=== PATIENT | male | born 1985 | race Caucasian/White ===

== ENCOUNTER 2019-11-06 15:43 | Emergency (ER) | payer BC, SELFPAY ==
--- NOTE | 2019-11-06 15:44 | XRR_ITS ---
PROCEDURE INFORMATION: Exam: XR Right Shoulder Exam date and time: 11/06/2019 4:02 PM Age: 33 years old Clinical indication: Pain; Shoulder; Right; Patient HX: No known trauma TECHNIQUE: Imaging protocol: XR Right shoulder. Views: 2 or more views. COMPARISON: No relevant prior studies available. FINDINGS: Bones/joints: Negative for acute bony abnormality Soft tissues: Metallic surgical clips seen in the soft tissues of the anterior neck XR/XR shoulder RT min 2V* [id number] IMPRESSION: 1. No acute bone abnormality. 2. Metallic surgical clips anterior neck
[2019-11-06 16:02] VITALS: BP 157/89; PULSE 70; RESP 14; TEMP 36.9; O2SAT 97; BMI 42.2
--- NOTE | 2019-11-06 16:11 | ED_ITS ---
HPI - Extremity Problem General: Chief complaint: Extremity Problem,Nontraumatic Stated complaint: RIGHT SHOULDER AND NECK PAIN Time Seen by Provider: 11/06/19 16:10 Source: patient Mode of arrival: ambulatory Limitations: no limitations Review of Systems General: Reports: 10 or more systems reviewed and unremarkable except in HPI and below Musc: Reports: neck pain, extremity pain (right ar,) and joint pain (right shoulder) Physical Exam Const: COMMON NORMALS: no acute distress, patient oriented x3, no limitations and alert GENERAL APPEARANCE: cooperative and comfortable ORIENTATION/CONSCIOUSNESS: Yes awake, Yes oriented to person, Yes oriented to place and Yes oriented to time HENMT: COMMON NORMALS: normocephalic, atraumatic, external ears normal, EAC's normal, TM's normal bilaterally and Normal external nose present HEAD & SCALP: normal to inspection, normocephalic and atraumatic FACE & SINUS: normal facial exam, sinuses nontender and face symmetric NOSE: Normal external nose present, Normal nares present and No nasal discharge present EXTERNAL EAR: Yes external ears normal EXTERNAL AUDITORY CANAL: EAC's normal TYMPANIC MEMBRANE: TM's normal bilaterally MOUTH: Normal oral and palatal mucosa present, lip normal and tongue normal THROAT: posterior oropharynx normal, tonsils normal and uvula midline Eye: COMMON NORMALS: Equal, round and reactive pupils present, EOMs intact bilaterally and conjunctivae normal GENERAL EYE: appearance normal, both eyes and all related structures and normal light reflex EYELID: eyelids normal CONJUNCTIVA: Yes conjunctivae normal PUPIL: Yes Equal, round and reactive pupils present EOM: Yes EOM abnormal DIRECT OPHTHALMOSCOPY: Yes normal light reflex Neck/C-Spine: COMMON NORMALS: full ROM, no lymphadenopathy, supple, no meningeal signs, no JVD and Thyroid normal GENERAL: Yes normal visual inspection THYROID: Thyroid normal CERVICAL SPINE: Yes cervical ROM normal and Yes normal cervical lordosis Lymph: LYMPHATIC: no lymphadenopathy noted Chest: COMMONS NORMALS: normal inspection of the chest and normal palpation of entire chest wall Resp: COMMON NORMALS: normal respiratory effort, No retractions and clear to auscultation bilaterally AUSCULTATION: clear to auscultation bilaterally Cardio: COMMON NORMALS: no JVD, regular rate, regular rhythm, S1 normal heart sound present, S2 normal heart sound present, No gallops present (Cardio), No clicks present (Cardio), No murmurs present (Cardio), No rub (Cardio) and Peripheral pulses 2+ throughout RATE: regular rate RHYTHM: regular rhythm HEART SOUNDS: S1 normal heart sound present and S2 normal heart sound present PERIPHERAL PULSES: Peripheral pulses 2+ throughout GI: COMMON NORMALS: Normal to inspection, nondistended, normoactive bowel sounds present, Soft to palpation, non-tender and no masses PALPATION: Yes Soft to palpation : COMMON NORMALS: Yes no CVA tenderness BLADDER/KIDNEY EXAM: Yes no CVA tenderness Back/Pelvis: COMMON NORMALS: no CVA tenderness, thoracic and lumbar spine normal to inspection, no thoracic nor lumbar tenderness and thoraco-lumbar ROM normal Extremity: COMMON NORMALS: normal to inspection, full ROM, capillary refill normal, no joint enlargement, no clubbing, cyanosis or edema, no calf tenderness and no pedal edema GENERAL: Yes normal exam except as noted RIGHT UPPER EXTREMITY: Yes shoulder joint Right shoulder: Yes palpation and Yes Right shoulder joint ROM exam (mild pain when turns head to the left; ache in right should blade) Neuro: COMMON NORMALS: patient oriented x3, moves all extremities, no focal motor deficits, no sensory deficits noted and gait normal SENSORIUM/ORIENTATION: Yes alert, Yes oriented to person, Yes oriented to place and Yes oriented to time MENINGEAL SIGNS: Yes no meningeal signs Psych: COMMON NORMALS: mental status grossly normal, Normal thought process present, cooperative, normal affect, speech normal and activity/motor behavior normal SPEECH: Yes normal speech THOUGHT PROCESS: Normal thought process present Skin: COMMON NORMALS: no rashes or lesions noted, no wounds and turgor normal GENERAL SKIN EXAM: no rashes or lesions noted and turgor normal Course ED course: Pt presents with complaints of right shoulder pain x 1 week. He states he can feel it in his right side of his neck and trapezius muscle is sore upon palpation. We are going to do steroids, muscle relaxers, and NSAIDs. Advise follow up or return if worsening in symptoms Vital Signs: Vital signs: Vital Signs Temperature 98.5 F 11/06/19 16:02 Pulse Rate 70 11/06/19 16:02 Respiratory Rate 14 11/06/19 16:02 Blood Pressure 157/89 11/06/19 16:02 Pulse Oximetry 97 11/06/19 16:02 Discharge Plan Discharge Patient Disposition: Home Clinical Impression: Cervical radiculopathy Condition: Stable Prescriptions: New methylprednisolone [Medrol (Luciano)] 4 mg tablets,dose pack See Rx Instructions .ROUTE .COMPLEX Qty: 21 RF: 0 tizanidine 4 mg capsule 4 mg PO BID PRN (Reason: muscle spasticity) Qty: 20 RF: 0 ibuprofen 800 mg tablet 800 mg PO Q8H Qty: 20 RF: 0 Discharge Orders: Discharge Order (Routine); Ordered 11/06/19 Ordered By: Emili Delgado Referrals: Michael Romeo MD [Primary Care Provider] - Discharge Diet: Usual diet Discharge Activity: Increase activity as tolerated Activity Restrictions/Additional Instructions: Follow up with PCP in one week or return for worsening in symptoms as needed. Coding Level of Care Code ED Safety Counselor for Alex Angela
[2019-11-06] MEDS: dexamethasone 10 mg/mL INJ IM (16:55)
[2019-11-06] MEDS: orphenadrine 30 mg/mL Inj 2 mL 60 MG IM (16:55)
[2019-11-06] MEDS: ketorolac 60 mg/2 mL INJ IM (16:55)
[2019-11-06 16:59] VITALS: BP 147/94; PULSE 74; RESP 14; O2SAT 96
== END 2019-11-06 16:59 | disposition home or self-care (01) ==
PROVIDERS: Emergency Provider Nurse Practitioner Family; Family Provider Family Medicine; PCP Family Medicine
DX: M54.12 Radiculopathy, cervical region (principal)
CPT/HCPCS: 12345; 73030; 96372; 99281; 99283; J1100; J1885; J2360

== ENCOUNTER 2019-12-06 12:30 | Outpatient (CLI) | payer BC, SELFPAY | END 2019-12-06 12:31 | disposition home or self-care (01) | LOC: SLEEP 12-07 09:51 | PROVIDERS: Family Provider Family Medicine; PCP Family Medicine; Visit Provider Family Medicine | DX: G47.10 Hypersomnia, unspecified (principal) | CPT/HCPCS: G0399 ==

== ENCOUNTER 2020-03-20 18:48 | Emergency (ER) | payer BC, SELFPAY ==
[2020-03-20 19:08] VITALS: BP 153/92; PULSE 98; RESP 16; TEMP 37; O2SAT 97; BMI 42.5
[2020-03-20 20:11] VITALS: BP 160/103; PULSE 80; RESP 18; O2SAT 99
--- NOTE | 2020-03-20 20:13 | ED_ITS ---
HPI - Fall General: Chief Complaint: Fall Stated Complaint: SLIPPED ON STAIRS, INJURIES (BACK & R WRIST) Time Seen by Provider: 03/20/20 20:10 Source: patient Mode of arrival: ambulatory Limitations: no limitations History of Present Illness: HPI Narrative: Patient is a 34-year-old male who presents to ED today for an evaluation of a slip and fall down a flight of stairs. Patient tells me he slipped on ice and fell onto his right side. He is complaining of right posterior rib pain and right wrist/hand pain. He denies striking his head, LOC, neck, or back pain. Patient is ambulatory without difficulty. MD complaint: fall Onset (ago): hour(s) Fall from: standing Fall witnessed: no Place fall occurred: home Loss of consciousness: None Prolonged down time: no Symptoms prior to fall: none Context: tripped/slipped Location of injury: chest (R posterior ribs) Location of injury - extremities: Left: hand Associated symptoms-after fall: Reports no associated symptoms and chest pain (R rib pain); Denies abdominal pain, headache(s), lightheadedness or neck pain Review of Systems Const: Denies: fever(s) or chills Eyes: Denies: change in vision Card: Reports: chest pain (R rib pain); Denies: palpitations, edema, lightheadedness, syncope, pre-syncope or orthopnea Resp: Denies: dyspnea, productive cough, non-productive cough, hemoptysis or chest congestion GI: Denies: abdominal pain Musc: Reports: extremity pain (R wrist/hand); Denies: neck pain Neuro: Denies: headache(s), numbness in extremities, weakness in extremities or sensory changes Physical Exam Const: COMMON NORMALS: no acute distress, patient oriented x3, no limitations and alert GENERAL APPEARANCE: cooperative ORIENTATION/CONSCIOUSNESS: Yes awake, Yes oriented to person, Yes oriented to place and Yes oriented to time HENMT: COMMON NORMALS: normocephalic and atraumatic HEAD & SCALP: normocephalic and atraumatic Neck/C-Spine: COMMON NORMALS: full ROM CERVICAL SPINE: Yes cervical ROM normal and No Cervical spine tenderness Chest: COMMONS NORMALS: normal inspection of the chest OTHER: TTP R posterior mid to lower ribs; no crepitus noted Resp: COMMON NORMALS: normal respiratory effort and clear to auscultation bilaterally AUSCULTATION: clear to auscultation bilaterally Cardio: COMMON NORMALS: regular rate and regular rhythm RATE: regular rate RHYTHM: regular rhythm Extremity: GENERAL: Yes normal exam except as noted OTHER: TTP to R proxim al ulnar hand on palmar surface; NV intact Neuro: MARYCRUZ COMA SCALE: document GCS findings Marycruz coma scale eye opening: Spontaneous Marycruz coma scale verbal response: Orientated Marycruz coma scale motor response: Obey commands [place] coma scale total score: 15 COMMON NORMALS: patient oriented x3, moves all extremities, no focal motor deficits, no sensory deficits noted and gait normal SENSORIUM/ORIENTATION: Yes alert, Yes oriented to person, Yes oriented to place and Yes oriented to time Skin: COMMON NORMALS: no rashes or lesions noted GENERAL SKIN EXAM: no rashes or lesions noted Course Vital Signs: Vital signs: Vital Signs Temperature 98.6 F 03/20/20 19:08 Pulse Rate 80 03/20/20 20:11 Respiratory Rate 18 03/20/20 20:11 Blood Pressure 160/103 03/20/20 20:11 Pulse Oximetry 99 03/20/20 20:11 MDM - Fall MDM Narrative: Medical decision making narrative: questionable pisiform fx on XR; he is point tenderness here on exam therefore will splint and have him follow up with orthopedics Imaging Data^: XR R ribs: My impression: NAD XR R wrist: My impression: on AP view there is a questionable fracture of pisiform Discharge Plan Discharge Patient Disposition: Home Clinical Impression: Fall from slipping on ice Qualifiers: Encounter type: initial encounter Qualified Code(s): W00.9XXA - Unspecified fall due to ice and snow, initial encounter Contusion of rib on right side Qualifiers: Encounter type: initial encounter Qualified Code(s): S20.211A - Contusion of right front wall of thorax, initial encounter Fracture of pisiform of right wrist Qualifiers: Encounter type: initial encounter Fracture type: closed Fracture alignment: nondisplaced Qualified Code(s): S62.164A - Nondisplaced fracture of pisiform, right wrist, initial encounter for closed fracture Condition: Stable Prescriptions: New hydrocodone-acetaminophen 5-325 mg tablet 1 tab PO Q6H PRN (Reason: pain) Qty: 14 RF: 0 No Action Medrol (Luciano) 4 mg tablets,dose pack See Rx Instructions .ROUTE .COMPLEX Qty: 21 RF: 0 tizanidine 4 mg capsule 4 mg PO BID PRN (Reason: muscle spasticity) Qty: 20 RF: 0 ibuprofen 800 mg tablet 800 mg PO Q8H Qty: 20 RF: 0 Discharge Orders: Discharge ED (Routine); Ordered 03/20/20 Ordered By: Lucita Bee Referrals: Michael Romeo MD [Primary Care Provider] - Patient Instructions: Opioid Safety Activity Restrictions/Additional Instructions: As discussed case management should contact you shortly to set you up with your orthopedic appointment. If you have not heard from them in 2 days please contact us for further instructions. Coding Level of Care Code ED Internet Marketing Specialist for Alex Fwd Exam Comprehensive
--- NOTE | 2020-03-20 20:23 | XR_ITS ---
WS: [id number] Right wrist, 03/20/2020 Clinical Data: fall Comparison: None. Findings: No fractures or dislocations are seen. The carpal bones are intact. There is no soft tissue swelling. The distal radius and ulna are not remarkable. XR/XR wrist RT min 3V* [id number] Impression: Negative right wrist.
--- NOTE | 2020-03-20 20:23 | XR_ITS ---
WS: [id number] Chest with right rib detail, 03/20/2020 Clinical Data: fall Comparison: Portable chest, 01/09/2019. Findings: The lungs show no nodules, masses, or effusions. The heart is normal. No pneumonia or pneumothorax is seen. The ribs are intact. No rib fractures seen. No subcutaneous emphysema is present. XR/XR ribs RT mn 3V w CXR1V [id number] Impression: Negative chest with right rib detail.
[2020-03-20 21:40] VITALS: BP 132/79; PULSE 79; RESP 16; O2SAT 97
--- NOTE | 2020-03-21 09:07 | DCPLANNER ---
automotive center manager had message to schedule a follow up appointment for patient with ortho. automotive center manager called the ortho clinic, spoke with Nora, gave clinic patients information. automotive center manager was told that patients information would be printed and reviewed. Clinic will call patient with appointment information.
--- NOTE | 2020-03-26 10:54 | DCPLANNER ---
Patient had a follow up appointment scheduled for 03.24.20 with ortho - patient did attend appointment.
== END 2020-03-20 21:40 | disposition home or self-care (01) ==
PROVIDERS: Emergency Provider Physician Assistant; PCP Family Medicine
DX: S20.211A Contusion of right front wall of thorax, initial encounter (principal); S62.164A Nondisplaced fracture of pisiform, right wrist, initial encounter for closed fracture; W10.8XXA Fall (on) (from) other stairs and steps, initial encounter
CPT/HCPCS: 29125; 71101; 73110; 99283

== ENCOUNTER → 2020-04-01 09:40 | Outpatient (BNVA) | payer BC, SELFPAY | PROVIDERS: PCP Family Medicine; Visit Provider Orthopaedic Surgery | DX: G56.21 Lesion of ulnar nerve, right upper limb (principal) | CPT/HCPCS: 73110 ==

== ENCOUNTER 2020-07-17 09:43 | Emergency (ER) | payer BC, SELFPAY ==
[2020-07-17] VITALS (7 sets, daily range): BP systolic 126–137; BP diastolic 78–88; PULSE 92–101; RESP 15–20; TEMP 37.3; O2SAT 88–98
--- NOTE | 2020-07-17 10:20 | XR_ITS ---
WS: [id number] PORTABLE CHEST HISTORY: cough and fevers COMPARISON: None available. Lungs are clear and well expanded. No pleural effusion or pneumothorax. Cardiac size: Normal. Mediastinum/Aorta: Normal mediastinum. No osseous abnormality seen. XR/XR chest 1V portable [id number] IMPRESSION: Unremarkable portable chest.
[2020-07-17] MEDS: sodium chloride 0.9% 1,000 ML 999 ML IV (10:38)
--- NOTE | 2020-07-17 10:42 | ECG_ITS ---
[facility] Test Date: 2020-07-17 Pat Name: Demian Cooper Department: Room: Gender: Male Software Configuration Engineer: : 1985 Requested By: Kashif Neal Order Number: [id number] Plaza MD: Faustino Yao M.D. Measurements Intervals [place] Rate: 94 P: TX: QRS: 79 QRSD: 92 T: 31 QT: 324 QTc: 406 Interpretive Statements SUPRAVENTRICULAR RHYTHM NONSPECIFIC T-WAVE ABNORMALITY No previous ECG available for comparison Electronically Signed On 07-17-2020 17:03:19 CDT by Faustino Yao M.D. [email or web address]
--- NOTE | 2020-07-17 10:43 | ED_ITS ---
HPI - COVID General: Chief Complaint: COVID symptoms Stated Complaint: low saturation, covid positive Time Seen by Provider: 07/17/20 10:15 Triage information: Has fever, cough or shortness of breath . Exposure to COVID + person last 14 days History of Present Illness: HPI Narrative: Patient is a 34-year-old male who comes to the ED with fever cough and shortness of breath. Patient says about a week ago he started developing symptoms of a dry cough, diarrhea, nausea, fever. He also tested positive for COVID-19 last July 11. His tested positive for COVID-19 as well. He is also complaining of having some chest pain that started approximately 3 to 4 days ago. The chest pain gets worse when he coughs or takes a deep breath. Chest pain is located midsternum. He says today he woke up and he felt like he was having more shortness of breath and he had an at home pulse ox and he was in around 90% O2 saturation. He decided to come here to the ED to be evaluated. COVID 19 common symptoms: positive fever(s), non-productive cough, dyspnea, nausea and diarrhea; negative chills, productive cough, fatigue, headache(s), throat pain, nasal congestion or vomiting COVID 19 other sytmptoms: positive chest pain COVID Results: No Data to Display Review of Systems Const: Reports: fever(s); Denies: chills or fatigue Eyes: Denies: change in vision or eye discomfort ENMT: Denies: throat pain, odynophagia, nasal discharge or nasal congestion Card: Reports: chest pain; Denies: palpitations, edema, swelling of feet/ankles, dyspnea on exertion or orthopnea Resp: Reports: dyspnea and non-productive cough; Denies: productive cough GI: Reports: nausea and diarrhea; Denies: abdominal pain, vomiting, constipation or hematochezia : Denies: flank pain, difficulty urinating, dysuria or hematuria Musc: Denies: neck pain, back pain or extremity swelling Skin/Breast: Denies: rash or new lesions Neuro: Denies: headache(s), numbness in extremities or weakness in extremities Physical Exam Const: COMMON NORMALS: no acute distress, patient oriented x3 and alert GENERAL APPEARANCE: cooperative and comfortable HENMT: COMMON NORMALS: normocephalic HEAD & SCALP: normocephalic MOUTH: Normal oral and palatal mucosa present THROAT: posterior oropharynx normal and uvula midline Eye: COMMON NORMALS: Equal, round and reactive pupils present PUPIL: Yes Equal, round and reactive pupils present Neck/C-Spine: COMMON NORMALS: supple GENERAL: Yes normal visual inspection Chest: CHEST: Yes tenderness sternum Resp: COMMON NORMALS: normal respiratory effort, No retractions, No use of accessory muscles and clear to auscultation bilaterally EFFORT & INSPECTION: Yes tachypneic (20 bpm) and Yes Actively coughing dry and hacking AUSCULTATION: clear to auscultation bilaterally Cardio: COMMON NORMALS: regular rate, regular rhythm, S1 normal heart sound present, S2 normal heart sound present, No gallops present (Cardio), No clicks present (Cardio), No murmurs present (Cardio) and Peripheral pulses 2+ throughout RATE: regular rate RHYTHM: regular rhythm HEART SOUNDS: S1 normal heart sound present and S2 normal heart sound present PERIPHERAL PULSES: Peripheral pulses 2+ throughout GI: COMMON NORMALS: Normal to inspection, nondistended, normoactive bowel sounds present, Soft to palpation, non-tender and no masses INSPECTION: Yes central obesity PALPATION: Yes Soft to palpation : COMMON NORMALS: Yes no CVA tenderness BLADDER/KIDNEY EXAM: Yes no CVA tenderness Back/Pelvis: COMMON NORMALS: no CVA tenderness Extremity: COMMON NORMALS: normal to inspection Neuro: COMMON NORMALS: patient oriented x3 and moves all extremities SENSORIUM/ORIENTATION: Yes alert Skin: GENERAL SKIN EXAM: dry skin Course Vital Signs: Vital signs: Vital Signs Temperature 99.2 F 07/17/20 10:08 Pulse Rate 92 07/17/20 15:20 Respiratory Rate 20 H 07/17/20 15:20 Blood Pressure 137/88 07/17/20 15:20 Pulse Oximetry 96 07/17/20 15:20 MDM - COVID MDM Narrative: Medical decision making narrative: Patient is a 34-year-old male comes to the ED with upper respiratory symptoms and tested positive for COVID-19 a week ago. Today he is at home. Ox was registering upper 80s and low 90's O2 saturation. Patient appears nontoxic and in no acute distress or pain. Rest of exam is benign. His initial O2 saturation on room air was around 90%. Patient was then put on 2 L of oxygen and O2 saturation improved. CBC, CMP were unremarkable. Troponins negative. D-dimer normal. Chest x-ray showed no acute findings. EKG showed no signs of ST segment elevation or depression. Home O2 evaluation was done and patient qualified for 2 L of O2 when active and at rest. Patient was set up with home O2 before discharge. He is diagnosed with COVID- 19 and oxygen desaturation. He was told to follow-up with his PCP in 7 days for reevaluation. Return to ED precautions given. Patient understood and agreed with plan. Medical Records: Attestation: I reviewed the patient's medical records. Lab Data: Attestation: I reviewed the patient's lab results. Labs: Lab Results 07/17/20 07/17/20 07/17/20 Range/Units 10:40 10:40 10:40 WBC 5.6 (4.0-10.0) 10^3/ uL RBC 4.83 (4.1-5.3) 10^6/u L Hgb 14.9 (11.7-16.6) g/dL Hct 43.9 (42.0-52.0) % MCV 90.9 (80-94) fL MCH 30.8 (28.0-34.0) pg MCHC 33.9 (30.0-36.0) g/dL RDW 14.2 (12.1-15.1) % Plt Count 188 (130-400) 10^3/c mm MPV 11.0 H (7.4-10.4) fL Neut % (Auto) 71.6 % Lymph % (Auto) 19.0 % [place] % (Auto) 6.4 % Eos % (Auto) 2.3 % Baso % (Auto) 0.2 % Neut # (Auto) 4.02 (1.8-7.7) 10^3/u L Lymph # (Auto) 1.1 (0.8-4.8) 10^3/u L [place] # (Auto) 0.4 (0.2-0.9) 10^3/u L Eos # (Auto) 0.1 (0.0-0.8) 10^3/u L Baso # (Auto) 0.0 (0.0-0.1) 10^3/u L Nucleated RBC % (a uto) 0 % Nucleated RBCs # 0.0 /100WBC D-Dimer (0-0.59) ug/mIFE U Sodium 133 L (136-145) mmol/L Potassium 3.7 (3.5-5.1) mmol/L Chloride 99 (98-107) mmol/L Carbon Dioxide 22 (22-29) mmol/L Anion Gap 15.7 (5-19) BUN 9 (6-20) mg/dL Creatinine 0.8 (0.7-1.2) mg/dL GFR Calculation 110.7 (90-130) mL/min Glucose 95 (65-115) mg/dL Calculated Osmolal ity 274 L (285-295) mOsm/k g Calcium 8.1 L (8.5-10.5) mg/dL Total Bilirubin 0.4 (0.15-1.2) mg/dL AST 43 H (0-40) U/L ALT 54 H (0-41) U/L Alkaline Phosphata se 84 (40-130) IU/L Troponin T Baselin e 6 (0-15) ng/L Total Protein 7.1 (6.6-8.7) g/dL Albumin 4.1 (3.5-5.2) g/dL Globulin 3.0 (1.3-4.6) g/dL Lipase 67 H (13-60) U/L 07/17/20 Range/Units 11:09 WBC (4.0-10.0) 10^3/ uL RBC (4.1-5.3) 10^6/u L Hgb (11.7-16.6) g/dL Hct (42.0-52.0) % MCV (80-94) fL MCH (28.0-34.0) pg MCHC (30.0-36.0) g/dL RDW (12.1-15.1) % Plt Count (130-400) 10^3/c mm MPV (7.4-10.4) fL Neut % (Auto) % Lymph % (Auto) % [place] % (Auto) % Eos % (Auto) % Baso % (Auto) % Neut # (Auto) (1.8-7.7) 10^3/u L Lymph # (Auto) (0.8-4.8) 10^3/u L [place] # (Auto) (0.2-0.9) 10^3/u L Eos # (Auto) (0.0-0.8) 10^3/u L Baso # (Auto) (0.0-0.1) 10^3/u L Nucleated RBC % (a uto) % Nucleated RBCs # /100WBC D-Dimer 0.38 (0-0.59) ug/mIFE U Sodium (136-145) mmol/L Potassium (3.5-5.1) mmol/L Chloride (98-107) mmol/L Carbon Dioxide (22-29) mmol/L Anion Gap (5-19) BUN (6-20) mg/dL Creatinine (0.7-1.2) mg/dL GFR Calculation (90-130) mL/min Glucose (65-115) mg/dL Calculated Osmolal ity (285-295) mOsm/k g Calcium (8.5-10.5) mg/dL Total Bilirubin (0.15-1.2) mg/dL AST (0-40) U/L ALT (0-41) U/L Alkaline Phosphata se (40-130) IU/L Troponin T Baselin e (0-15) ng/L Total Protein (6.6-8.7) g/dL Albumin (3.5-5.2) g/dL Globulin (1.3-4.6) g/dL Lipase (13-60) U/L Imaging Data: CXR: Attestation: I personally reviewed and interpreted this imaging study as follows: Radiologist's impression: [address] [address] XRay Report Signed Patient: Demian Cooper Unit #: [id number] : 1985 Age/Sex: 34 / M ADM Date: 07/17/20 Loc: ER Room/Bed: Attending Dr: Ordering Provider/Ordering MD: Kashif Neal Date of Service: 07/17/20 Procedure(s): XR chest 1V portable [id number] Accession Number(s): [id number] Report Number: [id number] WS: [id number] PORTABLE CHEST HISTORY: cough and fevers COMPARISON: None available. Lungs are clear and well expanded. No pleural effusion or pneumothorax. Cardiac size: Normal. Mediastinum/Aorta: Normal mediastinum. No osseous abnormality seen. XR/XR chest 1V portable [id number] IMPRESSION: Unremarkable portable chest. Dictated By: Lashell Leal DO Signed By: Lashell Leal DO Signed Date/Time: 07/17/20 1036 DD/ 1036 EKG Data: EKG 1: Attestation: I personally reviewed and interpreted this EKG as follows: EKG interpretation date: 07/17/20 Interpretation: Baseline EKG. Normal sinus rhythm, 94 bpm, no ST segment elevation or depression seen. EKG 2: Attestation: I personally reviewed and interpreted this EKG as follows: EKG interpretation date: 07/17/20 Interpretation: 2-hour EKG?sinus tachycardia, 100 bpm, no ST segment elevation or depression seen. COVID Results: No Data to Display Discharge Plan Discharge Patient Disposition: Home Clinical Impression: COVID-19, Oxygen desaturation, Requires continuous at home supplemental oxygen Condition: Stable Prescriptions: New benzonatate 100 mg capsule 100 mg PO TID PRN (Reason: cough) Qty: 20 RF: 0 ondansetron HCl 4 mg tablet 4 mg PO Q8H Qty: 10 RF: 0 methylprednisolone 4 mg tablets,dose pack See Rx Instructions .ROUTE .COMPLEX Qty: 21 RF: 0 azithromycin 250 mg tablet See Rx Instructions .ROUTE .COMPLEX Qty: 6 RF: 0 No Action Zyrtec 10 mg Tablet 10 mg PO DAILY PRN (Reason: Allergy Symptoms) RF: 0 meloxicam 15 mg tablet 15 mg PO DAILY RF: 0 ondansetron HCl 4 mg tablet 4 mg PO Q6H PRN (Reason: nausea/vomiting) RF: 0 Euthyrox 150 mcg tablet 150 mcg PO DAILY RF: 0 ibuprofen 200 mg Tablet 200 mg PO Q4H PRN (Reason: Pain) RF: 0 montelukast 10 mg tablet 10 mg PO DAILY RF: 0 Nexium 24HR 20 mg Tablet,Delayed Release (Dr/Ec) 20 mg PO DAILY RF: 0 multivitamin 1 tab PO DAILY RF: 0 Discharge Orders: Discharge ED (Routine); Ordered 07/17/20 Ordered By: Kashif Neal Referrals: Michael Romeo MD [Primary Care Provider] - Discharge Diet: Regular Discharge Activity: Increase activity as tolerated Patient Instructions: Using Oxygen at Home (ED), Upper Respiratory Infection (ED) Activity Restrictions/Additional Instructions: Follow-up with medical provider as directed in 5 to 7 days for reevaluation. Wear home oxygen on 2 L. Take medications as prescribed. Return to the ER or your medical provider if condition worsens. Please read and understand discharge instructions. Thank you for choosing [facility] for your healthcare needs today. Please realize this is an emergency room and that we are providing you with a medical screening exam and this may not be complete and all inclusive of all the testing and or work up that you may need to determine your ailment or severity of your illness. It is very important that you follow up as instructed or that you return to the Emergency Department should you have concerns or if your condition changes or worsens in any way. Coding Level of Care Code ED Materials Planning Analyst for Alex Angela Exam Comprehensive
[2020-07-17] MEDS: ondansetron 2 mg/ML SDV 2 mL 4 MG IVP (10:58)
[2020-07-17 11:05] LABS: Basophils % 0.2 %; Eosinophils # 0.1 10^3/uL (0.0-0.8); Eosinophils % 2.3 %; Hematocrit 43.9 % (42.0-52.0); Hemoglobin 14.9 g/dL (11.7-16.6); Lymphocytes # 1.1 10^3/uL (0.8-4.8); Mean Corpuscular HGB Conc 33.9 g/dL (30.0-36.0); Mean Corpuscular Hemoglobin 30.8 pg (28.0-34.0); Mean Corpuscular Volume 90.9 fL (80-94); Monocytes # 0.4 10^3/uL (0.2-0.9); Monocytes % 6.4 %; Neutrophils # 4.02 10^3/uL (1.8-7.7); Neutrophils % 71.6 %; Nucleated Red Blood Cells % 0 %; Platelet Count 188 10^3/cmm (130-400); Red Blood Count 4.83 10^6/uL (4.1-5.3); Red Cell Distribution Width 14.2 % (12.1-15.1); White Blood Count 5.6 10^3/uL (4.0-10.0)
[2020-07-17 11:24] LABS: Alanine Aminotransferase 54 U/L (0-41); Albumin Level 4.1 g/dL (3.5-5.2); Alkaline Phosphatase 84 IU/L (40-130); Anion Gap 15.7 (5-19); Aspartate Amino Transferase 43 U/L (0-40); Blood Urea Nitrogen 9 mg/dL (6-20); Calcium 8.1 mg/dL (8.5-10.5); Carbon Dioxide 22 mmol/L (22-29); Chloride 99 mmol/L (98-107); Glomerular Filtration Rate 110.7 mL/min (90-130); Glucose 95 mg/dL (65-115); Lipase 67 U/L (13-60); Osmolality Calculated 274 mOsm/kg (285-295); Potassium 3.7 mmol/L (3.5-5.1); Sodium 133 mmol/L (136-145); Total Bilirubin 0.4 mg/dL (0.15-1.2); Total Protein 7.1 g/dL (6.6-8.7); Troponin(5th) Baseline 6 ng/L (0-15)
[2020-07-17 11:28] LABS: D Dimer 0.38 ug/mIFEU (0-0.59)
--- NOTE | 2020-07-17 12:42 | ECG_ITS ---
[facility] Test Date: 2020-07-17 Pat Name: Demian Cooper Department: Room: Gender: Male Fitness Floor Attendant: : 1985 Requested By: Kashif Neal Order Number: [id number] Plaza MD: Faustino Yao M.D. Measurements Intervals [place] Rate: 100 P: 48 MN: 152 QRS: 78 QRSD: 113 T: 35 QT: 327 QTc: 422 Interpretive Statements SINUS TACHYCARDIA LOW QRS VOLTAGE IN PRECORDIAL LEADS [QRS DEFLECTION < 1.0 mV IN CHEST LEADS] MODERATE INTRAVENTRICULAR CONDUCTION DELAY [110+ ms QRS DURATION] NONSPECIFIC T-WAVE ABNORMALITY Compared to ECG 07/17/2020 10:53:04 Low QRS voltage now present Intraventricular conduction delay now present Supraventricular rhythm no longer present T-wave abnormality still present Electronically Signed On 07-17-2020 17:06:40 CDT by Faustino Yao M.D. [email or web address]
--- NOTE | 2020-07-17 13:49 | DCPLANNER ---
manager configuration was asked to help get home O2 for patient. manager configuration faxed patients information to HOME for the oxygen. manager configuration filled out Patient Choice for patient, he chose [facility] for his oxygen.
[2020-07-17] MEDS: ibuprofen 800 mg tablet PO (13:59)
== END 2020-07-17 15:30 | disposition home or self-care (01) ==
PROVIDERS: Emergency Provider Physician Assistant; PCP Family Medicine
DX: U07.1 COVID-19 (principal); Z99.81 Dependence on supplemental oxygen
CPT/HCPCS: 36415; 71045; 80053; 83690; 84484; 85025; 85378; 93005; 96361; 96374; 96375; 99284; J2405; J2930; J7030

== ENCOUNTER → 2021-12-07 10:35 | Outpatient (BNVA) | payer BC, SELFPAY | PROVIDERS: PCP Family Medicine; Visit Provider Registered Nurse Neonatal Intensive Care | DX: R52 Pain, unspecified (principal); B34.9 Viral infection, unspecified | CPT/HCPCS: 87400 ==

== ENCOUNTER → 2022-12-01 14:03 | Outpatient (BNVA) | payer BC, SELFPAY | PROVIDERS: PCP Family Medicine; Visit Provider Nurse Practitioner Family | DX: R09.89 Other specified symptoms and signs involving the circulatory and respiratory systems (principal); U07.1 COVID-19 | CPT/HCPCS: 87400; 87426 ==

== ENCOUNTER → 2023-07-26 07:37 | Outpatient (CLI) | payer BC, SELFPAY ==
--- NOTE | 2023-07-26 09:20 | MR_ITS ---
WS: [id number] MRA HEAD TECHNIQUE: Axial 3-D TOF images obtained with axial images and axial, sagittal, and coronal 2-D refor matted images. CLINICAL INFORMATION: R56.9 - Unspecified convulsions COMPARISON: CT head 2019 FINDINGS: Distal vertebral arteries are patent. Basilar artery is patent. Normal vascularity to the [employer] HE[employer] ASSISTANT territo ry bilaterally. Patent LEFT posterior communicating artery. Both ICAs are patent at the skull base. T ortuous cavernous carotid arteries bilaterally. Normal vascularity to the MERRY and MCA territories. No evidence of high-grade proximal stenosis or aneurysm. MR/MR angio head wo con [id number] IMPRESSION: No evidence of proximal flow-limiting stenosis or aneurysm.
== END | disposition home or self-care (01) ==
LOC: RAD 07:38
PROVIDERS: PCP Family Medicine; Visit Provider Psychiatry & Neurology Neurology
DX: R56.9 Unspecified convulsions (principal); I65.23 Occlusion and stenosis of bilateral carotid arteries
CPT/HCPCS: 70544

== ENCOUNTER 2023-11-22 15:55 | Outpatient (RCR) | payer BC, SELFPAY | END 2023-12-08 23:59 | disposition home or self-care (01) | LOC: SPT 15:55 | PROVIDERS: PCP Family Medicine; Visit Provider Psychiatry & Neurology Neurology | DX: G56.20 Lesion of ulnar nerve, unspecified upper limb (principal) | CPT/HCPCS: 97110; 97161 ==

== ENCOUNTER 2023-12-09 06:00 | Outpatient (RCR) | payer BC, SELFPAY | END 2024-01-07 23:59 | disposition home or self-care (01) | LOC: SPT 06:00 | PROVIDERS: PCP Family Medicine; Visit Provider Psychiatry & Neurology Neurology | DX: G56.20 Lesion of ulnar nerve, unspecified upper limb (principal) | CPT/HCPCS: 97110 ==

== ENCOUNTER 2024-01-08 06:00 | Outpatient (RCR) | payer BC, SELFPAY | END 2024-02-07 23:59 | disposition home or self-care (01) | LOC: SPT 06:00 | PROVIDERS: PCP Family Medicine; Visit Provider Psychiatry & Neurology Neurology | DX: G56.20 Lesion of ulnar nerve, unspecified upper limb (principal) | CPT/HCPCS: 97110 ==

== ENCOUNTER 2024-01-13 15:09 | Outpatient (CLI) | payer BC, SELFPAY ==
--- NOTE | 2024-01-13 15:30 | MRR_ITS ---
PROCEDURE INFORMATION: Exam: MR Head Without and With Contrast, Sella Exam date and time: 01/13/2024 3:36 PM Age: 38 years old Clinical indication: Condition or disease; Other: Hypogonadism TECHNIQUE: Imaging protocol: MR of the head without and with intravenous contrast. Exam focused on the sella. Contrast material: MULTIHANCE; Contrast volume: 20 ml; Contrast route: INTRAVENOUS (IV); COMPARISON: MR angio head wo con [id number] 07/26/2023 8:08 AM FINDINGS: Brain: Unremarkable. No acute infarct. No significant white matter disease. No edema. No abnormal parenchymal enhancement. Cerebral ventricles: Unremarkable. No ventriculomegaly. Pituitary gland and sella: Unremarkable. Pituitary gland is normal. Bones/joints: Unremarkable. MR/MR pituitary wo/w con* [id number] IMPRESSION: No acute findings.
[2024-01-13] MEDS: gadobenate dimeglumine 20 mL vial IV (16:15)
== END 2024-01-13 15:10 | disposition home or self-care (01) ==
LOC: RAD 15:10
PROVIDERS: PCP Family Medicine; Visit Provider Family Medicine
DX: E23.0 Hypopituitarism (principal)
CPT/HCPCS: 70553; A9577